=== PATIENT | male | born 1995 | race Caucasian/White ===

== ENCOUNTER 2018-09-23 19:25 | Emergency (ER) | payer SELFPAY ==
[2018-09-23] MEDS ORDERED: Sulfamethoxazole/TMP 800/160mg Tab PO ONE (19:53)
--- NOTE | 2018-09-23 19:53 | ED Physician Chart ---
ED Chief Complaint/HPI - Patient Information Date Seen:: 09/23/18 Time Seen:: 19:40 Chief Complaint:: medical clearance History of Present Illness:: Patient is here for medical clearance for okay to book in the [facility]. Patient's had hepatitis C for several years. His liver enzymes are using about 1000. He's had a lesion of the posterior aspect of the right elbow for 2-3 week. He was prescribed Keflex but did not fill the prescription. He has recently had cellulitis of the left arm which is now improved. When specifically asked patient says he does have some ear pain. States he has neck pain also but no neck trauma. Allergies:: Allergies Allergy/AdvReac Type Severity Reaction Status Date / Time haloperidol [From Haldol] Allergy Verified 09/23/18 19:32 Vitals:: Vital Signs - 8 hr 09/23/18 19:30 Temp 98.0 F HR 98 RR 18 BP 149/63 O2 Sat % 99 Historian:: Patient Review:: Nurse's Note Reviewed ED Review of Systems - Review of Systems General/Constitutional: No fever, No chills, No weight loss, No weakness, No diaphoresis, No edema, No loss of appetite Skin: Skin lesions, No rash, No bruising Head: No headache, No light-headedness Eyes: No loss of vision, No pain, No diplopia ENT: No earache, No nasal drainage, No sore throat, No tinnitus Neck: No neck pain, No swelling, No thyromegaly, No stiffness, No mass noted Cardio Vascular: No chest pain, No palpitations, No PND, No orthopnea, No edema Pulmonary: No SOB, No cough, No sputum, No wheezing GI: No nausea, No vomiting, No diarrhea, No pain, No melena, No hematochezia, No constipation, No hematemesis G/U: No dysuria, No frequency, No hematuria Musculoskeletal: No bone or joint pain, No back pain, No muscle pain Endocrine: No polyuria, No polydipsia Psychiatric: No prior psych history, No depression, No anxiety, No suicidal ideation Hematopoietic: No bruising, No lymphadenopathy Allergic/Immuno: No urticaria, No angioedema Neurological: No syncope, No focal symptoms, No weakness, No paresthesia, No headache, No seizure, No dizziness, No confusion, No vertigo ED Past Medical History - Past Medical History Past Medical History: Other (hepatitis C) Family History: None Social History: Smoker, No Alcohol Surgical History: None Psychiatricy History: None Medication: None Family Medical History - Family Member Mother History Unknown: Yes ED Physical Exam - Physical Examination General/Constitutional: Awake, Well-developed, well-nourished, Alert, No distress, GCS 15, Non-toxic appearing, Ambulatory Head: Atraumatic Eyes: Lids, conjuctiva normal, PERRL, EOMI Other Skin comments:: Posterior right elbow: About 1 cm x 8 mm superficial abscess to a depth of about 2 mm with about 5 mm of surrounding erythema ENMT: External ears, nose nl, Nasal exam nl, Lips, teeth, gums nl Other ENMT comments:: Erythema medial kelsey both external auditory canals Neck: Nontender, No mass, No stridor Other Neck comments:: 80 forward flexion neck Respiratory: Nl effort/Exclusion, Clear to Auscultation, No Wheeze/Rhonchi/Rales Cardio Vascular: RRR, No murmur, gallop, rubs, NL S1 S2 GI: No tenderness/rebounding/guarding, No organomegaly, No hernia, Normal BS's, Nondistended, No mass/bruits, No McBurney tenderness Extremities: No tenderness or effusion, No edema, Normal digits & nails Neuro/Psych: Alert/oriented, Judgement/insight normal, Mood normal, No focal deficits Misc: Normal back ED Assessment - Assessment General Assessment: Patient has a small superficial abscess of the posterior right elbow with a slight amount of surrounding cellulitis for which he will be prescribed Bactrim DS No. 20 to take 1 twice a day. Patient also has bilateral otitis externa for which he will be prescribed Cortisporin otic to apply 3 drops both ears 4 times a day. Patient's hepatitis C should be no problem in alf. ED Septic Shock - . Is Septic Shock (SBP<90, OR Lactate>4 mmol\L) present?: No - <6hrs of presentation: Vital Signs: Vital Signs - 8 hr 09/23/18 19:30 Temp 98.0 F HR 98 RR 18 BP 149/63 O2 Sat % 99 ED Reassessment (Disposition) - Reassessment Reassessment Condition:: Unchanged - Diagnosis Diagnosis:: Abscess and cellulitis right elbow; bilateral otitis externa; hepatitis C by history - Aftercare/Follow up Instructions Aftercare/Follow-Up Instructions:: Refer to Discharge Instructions - Patient Disposition Discharge/Transfer:: Nursing Home/Senior Care Condition at Disposition:: Stable, Unchanged
[2018-09-23] MEDS ORDERED: Sulfamethoxazole/TMP 800/160mg Tab ONE (20:00)
== END 2018-09-23 20:10 | disposition short-term general hospital (02) ==
LOC: ER 19:25
DX: H60.93 Unspecified otitis externa, bilateral (principal); L02.413 Cutaneous abscess of right upper limb; L03.113 Cellulitis of right upper limb; F17.200 Nicotine dependence, unspecified, uncomplicated; Z86.19 Personal history of other infectious and parasitic diseases; Z88.5 Allergy status to narcotic agent
CPT/HCPCS: Z7502